=== PATIENT | female | born 1985 | race Caucasian/White ===

== ENCOUNTER 2017-03-28 13:26 | Emergency (ER) | payer MEDICARE, MEDICAID ==
[~2017-03-28] VITALS: Ht 162.6 cm; Wt 58.5 kg
[~2017-03-28 13:26] MED LIST: MULT-57; RISP0.252; VENL37.572
--- OUTSIDE RECORDS SUMMARY | 2017-03-28 13:30 | XMS REPORT | Continuity of Care Document ---
Demographics Preferred Language Unknown Marital Status Unknown Advent Affiliation Unknown Race Unknown Ethnic Group Unknown Author Author [facility] Organization [facility] Address Unknown Phone Unavailable Allergies Medications Problems Procedures Results Encounters ACCT No. Visit Date/Time Discharge Status Pt. Type Provider Facility Loc./Unit Complaint [id number] 09/20/2016 14:04:00 ACT Unknown [id number] 05/19/2016 09:47:00 ACT Unknown [id number] 04/21/2016 08:35:00 ACT Unknown [id number] 02/12/2015 10:23:00 ACT Unknown [id number] 05/23/2014 08:54:00 ACT Unknown [id number] 05/23/2014 08:54:00 ACT Unknown [id number] 03/26/2014 10:08:00 ACT Unknown
--- OUTSIDE RECORDS SUMMARY | 2017-03-28 13:30 | XMS REPORT | CCD ---
Author Author DIONE CORTES Organization Unknown Address [address] [place] [phone] Phone 0 Care Team Providers Care Physician Relations Representative Name Role Phone BRIAN MERCER Attending Physician 0 Vital Signs Unknown or Not Available. Allergies Allergy Code Allergy Type Reaction Status No Known Drug Allergies 0 No known drug allergies Active Procedures Procedure Code Procedure Type Date CHEST [id number] 04/27/2016 History of Immunizations Unknown or Not Available. Problems Unknown or Not Available. Results Unknown or Not Available. Active Medications Unknown or Not Available. Medications Administered During Visit Unknown or Not Available. 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 Discharge Instructions You were admitted to [facility] on 04/27/2016 10:05 with a principal diagnosis of Nonspecific reaction to skin test w/o active tuberculos You were discharged from [facility] on 04/27/2016 10:05 Should you have any questions prior to discharge, please contact a member of your healthcare team. If you have left the hospital and have any questions, please contact your primary care physician. Chief Complaint and Reason For Visit Chief Complaint Date of Onset XR CHEST 2 VIEWS Function Status Unknown or Not Available. Plan of Care Unknown or Not Available. Referral/Transition of Care Unknown or Not Available.
--- OUTSIDE RECORDS SUMMARY | 2017-03-28 13:30 | XMS REPORT | CCD ---
Author Author SANYA OLIVIA Organization Unknown Address [address] [place] [address] [phone] Phone 0 Care Team Providers Care Ramp Boss Name Role Phone BRIAN MERCER Attending Physician 0 Adriana CASTRO Physician [phone] Vital Signs Unknown or Not Available. Allergies Allergy Code Allergy Type Reaction Status No Known Drug Allergies 0 No known drug allergies Active Procedures Unknown or Not Available. History of Immunizations Unknown or Not Available. Problems Unknown or Not Available. Results COMP METABOLIC - Collect Date/Time: 03/25/2015 08:20 Test Name Code Test Result Test Units Test Ref Range GLUCOSE 73 mg/dL L=70 H=110 BUN 7 mg/dL L=7 H=18 CREATININE 1.00 mg/ dL L=0.60 H=1.30 AGE 29 YEARS GFR 69.2 SODIUM 140 mmol/L L=136 H=145 POTASSIUM 3.9 mmol/ L L=3.5 H=5.1 CHLORIDE 104 mmol/L L=98 H=107 CO2 26 mmol/L L=21 H=32 CALCIUM 9.3 mg/dL L=8.5 H=10.1 AST 13 U/L L=15 H=37 ALT 29 U/L L=12 H=78 ALKALINE PHOS 82 U/ L L=50 H=136 TOTAL PROTEIN 7.6 g/ dL L=6.4 H=8.2 ALBUMIN 3.4 g/dL L=3.4 H=5.0 TOTAL BILI 0.30 mg/ dL L=0.00 H=1.00 LIPID PANEL - Collect Date/Time: 03/25/2015 08:20 Test Name Code Test Result Test Units Test Ref Range CHOLESTEROL 168 mg/ dL L=0 H=200 TRIGLYCERIDES 169 mg /dL L=30 H=150 HDL 45 mg/dL L=50 H=60 LDL, CALC 89 mg/dL L=0 H=100 VLDL 34 mg/dL L=0 H=40 CHOL/HDL RISK 3.7 RATIO L=0.0 H=4.4 PT FASTING: ? N/A Active Medications Unknown or Not Available. Medications Administered During Visit Unknown or Not Available. Encounters Unknown or Not Available. Social History Smoking Status Code Start Date End Date Current every day smoker [id number] Patient Decision Aids Unknown or Not Available. Discharge Instructions You were admitted to [facility] on 03/25/2015. You were discharged from [facility] on 03/25/2015. Should you have any questions prior to discharge, please contact a member of your healthcare team. If you have left the hospital and have any questions, please contact your primary care physician. Chief Complaint and Reason For Visit Unknown or Not Available. Function Status Unknown or Not Available. Plan of Care Unknown or Not Available. Referral/Transition of Care Unknown or Not Available.
--- OUTSIDE RECORDS SUMMARY | 2017-03-28 13:30 | XMS REPORT | CCD ---
Author Author SANYA OLIVIA Organization Unknown Address [address] [place] [address] [phone] Phone 0 Care Team Providers Care Netsuite Developer Name Role Phone BRIAN MERCER Attending Physician 0 Vital Signs Unknown or Not Available. Allergies Allergy Code Allergy Type Reaction Status No Known Drug Allergies 0 No known drug allergies Active Procedures Unknown or Not Available. History of Immunizations Unknown or Not Available. Problems Unknown or Not Available. Results TSH - Collect Date/Time: 01/28/2015 08:45 Test Name Code Test Result Test Units Test Ref Range TSH 1.35 uIU/mL L=0.36 H=3.74 Active Medications Unknown or Not Available. Medications Administered During Visit Unknown or Not Available. Encounters Encounter Diagnosis Diagnosis Code Start Date LOSS OF WEIGHT 61152 01/28/2015 Social History Smoking Status Code Start Date End Date Current every day smoker [id number] Patient Decision Aids Unknown or Not Available. Discharge Instructions You were admitted to [facility] on 01/28/2015 with a principal diagnosis of LOSS OF WEIGHT. You were discharged from [facility] on 01/28/2015. Should you have any questions prior to discharge, please contact a member of your healthcare team. If you have left the hospital and have any questions, please contact your primary care physician. Chief Complaint and Reason For Visit Chief Complaint Date of Onset LAB Function Status Unknown or Not Available. Plan of Care Unknown or Not Available. Referral/Transition of Care Unknown or Not Available.
--- OUTSIDE RECORDS SUMMARY | 2017-03-28 13:30 | XMS REPORT | CCD ---
Author Author SANYA OLIVIA Organization Unknown Address [address] [place] [address] [phone] Phone 0 Care Team Providers Care Lining Machine Tender Name Role Phone BRIAN MERCER Attending Physician 0 Adriana CASTRO Physician [phone] Vital Signs Unknown or Not Available. Allergies Allergy Code Allergy Type Reaction Status No Known Drug Allergies 0 No known drug allergies Active Procedures Unknown or Not Available. History of Immunizations Unknown or Not Available. Problems Unknown or Not Available. Results HGB A1C - Collect Date/Time: 05/20/2015 08:55 Test Name Code Test Result Test Units Test Ref Range HGB A1C 4.9 % L=4.5 H=6.2 eAG 94 mg/dL Active Medications Unknown or Not Available. Medications Administered During Visit Unknown or Not Available. Encounters Encounter Diagnosis Diagnosis Code Start Date LT USE OF OTH MEDICATIONS V5869 2014 Social History Smoking Status Code Start Date End Date Current every day smoker [id number] Patient Decision Aids Unknown or Not Available. Discharge Instructions You were admitted to [facility] on 05/20/2015 with a principal diagnosis of LT USE OF OTH MEDICATIONS. You were discharged from [facility] on 05/20/2015. Should you have any questions prior to [...]
--- OUTSIDE RECORDS SUMMARY | 2017-03-28 13:31 | XMS REPORT | Continuity of Care Document ---
Author Author [facility] Organization [facility] Address Unknown Phone Unavailable Support Name Relationship Address Phone PILO COONEY Caregiver [facility] [address] [place] [address] LIBRADO MCBRIDE MD Caregiver [address] [place] [address] [place] [phone] HIEU HUNTER Next Of Kin [address] [place] [address] Insurance Providers Payer Name Policy Number Subscriber Name Relationship Medicare [id number] Juan Luis Singh 17 Self Medicaid [id number] Juan Luis Singh 17 Self Advance Directives Directive Response Recorded Date/Time Advanced Directives Type None 08/08/14 6:40pm Problems Medical Problems Problem Onset Date Status Paranoid Unknown Active Medications Medication Dose Route Sig Days/Qty Instructions Order Date Discontinued Date Status [Abilify] DAILY 05/05/09 01/13/10 Discontinued [Lexapro] DAILY 05/05/09 01/13/10 Discontinued Risperidone DAILY 08/08/14 Active Venlafaxine HCl DAILY 08/08/14 Active Multivitamin DAILY 08/08/14 Active Social History Social History Problem Response Recorded Date/Time Smoking Status Current every day smoker 08/08/2014 7:06pm When did patient START smoking? 15 CIGS A DAY 08/08/2014 7:06pm Hx Alcohol Use No 08/08/2014 7:06pm Hospital Discharge Instructions No hospital discharge instructions. Plan of Care No plan of care. Functional Status Query Response Date Recorded Physical Hygiene Self August 08, 2014 7:06pm Disabilities None August 08, 2014 7:06pm Devices Used None August 08, 2014 7:06pm Dressing Self August 08, 2014 7:06pm Ambulation Self August 08, 2014 7:06pm Diet Self August 08, 2014 7:06pm Mental Status Alert August 08, 2014 8:44pm Disabilities None August 08, 2014 7:06pm Devices Used None August 08, 2014 7:06pm Physical Hygiene Self August 08, 2014 7:06pm Dressing Self August 08, 2014 7:06pm Ambulation Self August 08, 2014 7:06pm Diet Self August 08, 2014 7:06pm Allergies, Adverse Reactions, Alerts Allergen Type Severity Reaction Status Last Updated No Known Allergies Allergy Unknown Active 05/05/09 Immunizations No immunization records. Vital Signs Acute Vital Signs Vital Response Date/Time Temperature (Fahrenheit) 98.0 deg F (96.8 - 99.1) Temperature (Calculated Celsius) 36.29962 degrees C (36.0 - 37.3) Pulse Rate (adult) 85 bpm (60 - 100) Respiratory Rate 20 breaths/min (10 - 20) O2 Sat by Pulse Oximetry 95 % (90 - 100) Blood Pressure 123/61 mm Hg Height 5 ft 3 in Weight 154 lb Body Mass Index 27.0 kg/m^2 Results Test Source Date Result Interp. Ref. Range Comments Acetaminophen Level August 08, 2014 7:17pm < 10 UG/ML L 10-30 TOXIC <4 HR POST INGESTION: >150 MG/L;TOXIC <12 HR POST INGESTION: >50 MG/L Alanine Aminotransferase (ALT/SGPT) August 08, 2014 7:17pm 35 U/L N 9 -52 Albumin August 08, 2014 7:17pm 4.5 G/DL N 3.5-5.0 Albumin/Globulin Ratio August 08, 2014 7:17pm 1.7 RATIO N 1.1-2.2 Alcohol, Quantitative August 08, 2014 7:17pm <10 MG/DL - Alkaline Phosphatase August 08, 2014 7:17pm 65 U/L N 38-126 Anion Gap August 08, 2014 7:17pm 14 MEQ/L N 5-15 Aspartate Amino Transf (AST/SGOT) August 08, 2014 7:17pm 23 U/L N 14- 36 BUN/Creatinine Ratio August 08, 2014 7:17pm 9 RATIO N 6-26 Basophils # (Auto) August 08, 2014 7:17pm 0.0 T/MM3 N 0-0.2 Basophils (%) (Auto) August 08, 2014 7:17pm 0.4 % N 0-2 Blood Urea Nitrogen August 08, 2014 7:17pm 7.0 MG/DL N 7-17 Calcium Level August 08, 2014 7:17pm 9.7 MG/DL N 8.4-10.2 Calculated Osmolality August 08, 2014 7:17pm 273 MOSM/KG N 261-280 Carbon Dioxide Level August 08, 2014 7:17pm 24 MEQ/L N 22-30 Chloride Level August 08, 2014 7:17pm 105 MEQ/L N 98-107 Creatinine August 08, 2014 7:17pm 0.8 MG/DL N 0.7-1.2 Eosinophils # (Auto) August 08, 2014 7:17pm 0.1 T/MM3 N 0-0.5 Eosinophils (%) (Auto) August 08, 2014 7:17pm 0.7 % N 0-4 Globulin August 08, 2014 7:17pm 2.7 G/DL N 2.4-3.6 Glucose Level August 08, 2014 7:17pm 106 MG/DL N 65-110 Hematocrit August 08, 2014 7:17pm 44.9 % N 36-46 Hemoglobin August 08, 2014 7:17pm 15.7 GM/DL N 12-16 Human Chorionic Gonadotropin, Qual January 05, 2010 1:55pm Negative - Lymphocytes # (Auto) August 08, 2014 7:17pm 1.9 T/MM3 N 1-4.8 Lymphocytes (%) (Auto) August 08, 2014 7:17pm 27.1 % N 23-45 Mean Corpuscular Hemoglobin August 08, 2014 7:17pm 32.2 UUG N 26-34 Mean Corpuscular Hemoglobin Concent August 08, 2014 7:17pm 35.0 GM/DL N 31-37 Mean Corpuscular Volume August 08, 2014 7:17pm 92.0 UM3 N 80-100 Mean Platelet Volume August 08, 2014 7:17pm 11.1 UM3 N 9.4-12.4 Monocytes # (Auto) August 08, 2014 7:17pm 0.5 T/MM3 N 0-0.8 Monocytes (%) (Auto) August 08, 2014 7:17pm 6.6 % N 0-9.0 Neutrophils # (Auto) August 08, 2014 7:17pm 4.7 T/MM3 N 1.8-7.7 Neutrophils (%) (Auto) August 08, 2014 7:17pm 65.2 % N 33-66 Platelet Count August 08, 2014 7:17pm 156 T/MM3 N 130-400 Potassium Level August 08, 2014 7:17pm 3.6 MEQ/L N 3.6-5 RDW Standard Deviation August 08, 2014 7:17pm 43.1 FL N 36.9-50.2 Red Blood Count August 08, 2014 7:17pm 4.88 M/MM3 N 4.00-5.20 Salicylates Level August 08, 2014 7:17pm < 1.0 MG/DL L 2-20 Sodium Level August 08, 2014 7:17pm 143 MEQ/L N 134-144 Total Bilirubin August 08, 2014 7:17pm 0.30 MG/DL N 0.20-1.30 Total Protein August 08, 2014 7:17pm 7.2 G/DL N 6.3-8.2 Urine Bacteria January 13, 2010 9:51pm 2+ - Has specimen been collected /obtained? Y Urine Bilirubin August 08, 2014 7:00pm Negative - Has specimen been collected/obtained? Y Urine Blood August 08, 2014 7:00pm Trace-intact H - Has specimen been collected/obtained? Y Urine Collection Type August 08, 2014 7:00pm Voided-not cc-midstr - Has specimen been collected/obtained? Y Urine Color August 08, 2014 7:00pm Yellow - Has specimen been collected/obtained? Y Urine Culture Indicated January 13, 2010 9:51pm Cult set up - Has specimen been collected/obtained? Y Urine Drug Screen Confirmation May 05, 2009 10:06pm Sent out - Urine Glucose (UA) August 08, 2014 7:00pm Negative - Has specimen been collected/obtained? Y Urine Ketones August 08, 2014 7:00pm Negative - Has specimen been collected/obtained? Y Urine Leukocyte Esterase August 08, 2014 7:00pm Negative - Has specimen been collected/obtained? Y Urine Nitrite August 08, 2014 7:00pm Negative - Has specimen been collected/obtained? Y Urine Protein August 08, 2014 7:00pm Negative - Has specimen been collected/obtained? Y Urine RBC January 13, 2010 9:51pm None seen /HPF - Has specimen been collected/obtained? Y Urine Specific Ross August 08, 2014 7:00pm <=1.005 L - Has specimen been collected/obtained? Y Urine Turbidity August 08, 2014 7:00pm Clear - Has specimen been collected/obtained? Y Urine Urobilinogen August 08, 2014 7:00pm 0.2 EU/DL - Has specimen been collected/obtained? Y Urine WBC January 13, 2010 9:51pm 10-20 /HPF - Has specimen been collected/obtained? Y Urine pH August 08, 2014 7:00pm 5.5 - Has specimen been collected/ obtained? Y White Blood Count August 08, 2014 7:17pm 7.2 T/MM3 N 4.5-11.0 Chemistry Specimen Hemolysis August 08, 2014 7:17pm < 15 0-25 0-25 : No Hemolysis.26-70: Slight Hemolysis - can falsely elevate K and Urine Protein. 71-285: Moderate Hemolysis - can falsely elevate K, Troponin I, CA 19-9, PTH, CSF GLucose, and Urine Protein, and can falsely decrease Phenytoin. 286-999: Gross Hemolysis - can falsely elevate K, Troponin I, CA 19-9, PTH, CSF Glucose, and Urine Protine, and can falsely decrease Phenytoin. Recommend specimen recollection. Urinalysis Comment August 08, 2014 7:00pm Microscopic not ind. - Has specimen been collected/obtained? Y Lab Scanned Report September 21, 2011 12:58pm REFERENCE LAB [id number] - EKG May 05, 2009 8:58pm Complete - Turbidity August 08, 2014 7:17pm < 20 0-20 Glomerular Filtration Rate Calc August 08, 2014 7:17pm 84 - Immature Granulocyte # (Auto) August 08, 2014 7:17pm 0.00 T/MM3 N 0.00-0.03 Immature Granulocyte % (Auto) August 08, 2014 7:17pm 0.0 % N 0.0-0.5 Icterus Index August 08, 2014 7:17pm < 2 0-7 Urine Culture Urine, Clean Catch Voided January 13, 2010 10:07pm Mixed Gram Positive Organisms Procedures No known history of procedures. Encounters Encounter Location Date/Time Departed Emergency Room [facility] 08/08/14 6:39pm Recent Diagnosis
--- OUTSIDE RECORDS SUMMARY | 2017-03-28 13:31 | XMS REPORT | CCD ---
Author Author DIONE CORTES Organization Unknown Address [address] [place] [address] [phone] Phone 0 Care Team Providers Care Provider Contracting Consultant Name Role Phone BRIAN MERCER Attending Physician 0 KAVIN BERNAL Rounding Physician 0 Vital Signs Unknown or Not Available. Allergies Allergy Code Allergy Type Reaction Status No Known Drug Allergies 0 No known drug allergies Active Procedures Unknown or Not Available. History of Immunizations Unknown or Not Available. Problems Unknown or Not Available. Results HGB A1C - Collect Date/Time: 06/01/2016 08:00 Test Name Code Test Result Test Units Test Ref Range HGB A1C 4.8 % L=4.5 H=6.2 eAG 91 mg/dL Active Medications Unknown or Not Available. Medications Administered During Visit Unknown or Not Available. Encounters Encounter Diagnosis Diagnosis Code Start Date Other long term care pharmacist (current) drug therapy [id number] 06/01/2016 Social History Smoking Status Code Start Date End Date Current every day smoker [id number] Patient Decision Aids Unknown or Not Available. Discharge Instructions You were admitted to [facility] on 06/01/2016 11:21 with a principal diagnosis of Other long term care pharmacist (current) drug therapy You had the following tests done: HGB A1C You were discharged from [facility] on 06/01/2016 11:21 Should you have any questions prior to [...]
--- OUTSIDE RECORDS SUMMARY | 2017-03-28 13:31 | XMS REPORT | CCD ---
Author Author DIONE CORTES Organization Unknown Address [address] [place] [address] [phone] Phone 0 Care Team Providers Care Inventory Clerk Name Role Phone BRIAN MERCER Attending Physician 0 KAVIN BERNAL Rounding Physician 0 Vital Signs Unknown or Not Available. Allergies Allergy Code Allergy Type Reaction Status No Known Drug Allergies 0 No known drug allergies Active Procedures Unknown or Not Available. History of Immunizations Unknown or Not Available. Problems Unknown or Not Available. Results COMP METABOLIC - Collect Date/Time: 04/07/2016 08:10 Test Name Code Test Result Test Units Test Ref Range GLUCOSE 72 mg/dL L=70 H=110 BUN 8 mg/dL L=7 H=18 CREATININE 0.81 mg/ dL L=0.60 H=1.30 AGE 30 YEARS GFR 82.5 SODIUM 141 mmol/L L=136 H=145 POTASSIUM 3.8 mmol/ L L=3.5 H=5.1 CHLORIDE 107 mmol/L L=98 H=107 CO2 26 mmol/L L=21 H=32 CALCIUM 9.5 mg/dL L=8.5 H=10.1 AST 12 U/L L=15 H=37 ALT 23 U/L L=12 H=78 ALKALINE PHOS 57 U/ L L=50 H=136 TOTAL PROTEIN 7.2 g/ dL L=6.4 H=8.2 ALBUMIN 3.3 g/dL L=3.4 H=5.0 TOTAL BILI 0.30 mg/ dL L=0.00 H=1.00 Active Medications Unknown or Not Available. Medications Administered During Visit Unknown or Not Available. Encounters Encounter Diagnosis Diagnosis Code Start Date Other intermediate designer (current) drug therapy [id number] 04/07/2016 Social History Smoking Status Code Start Date End Date Current every day smoker [id number] Patient Decision Aids Unknown or Not Available. Discharge Instructions You were admitted to [facility] on 04/07/2016 10:32 with a principal diagnosis of Other senior living (current) drug therapy You had the following tests done: COMP METABOLIC You were discharged from [facility] on 04/07/2016 10:32 Should you have any questions prior to [...]
[2017-03-28 13:33] VITALS: Ht 162.6 cm; Wt 58.5 kg
--- NOTE | 2017-03-28 14:03 | ERPDOC ---
Departure Disposition Decision Date: March 28, 2017 Disposition Decision Time: 17:48 Disposition: 65 TO [facility] HOSP Impression Impression Impression: Primary Impression: Paranoid Severity: Moderate Condition: Stable Seen By: Physician only Referrals: PILO COONEY (Family) Patient Instructions: Medical Clearance for Psychiatric Care (ED) Problems/Meds/Labs Reviewed?: Yes Medications reviewed and manag: Yes Follow up care ordered?: Yes Mental Status: Alert, Oriented HPI - Psychosocial General Chief Complaint: Psychiatric Problems Stated Complaint: MENTAL EVAL Time Seen by MD: 14:03 Source: patient Exam Limitations: no limitations HPI - Psychosocial Initial Comments Patient is a 31-year-old female, presents emergency room for evaluation of her nausea increasing delusions. Patient recently discharged from [facility] after being there for 5 months, patient stop taking her medications 2 days ago by report of corrections caseworker. Patient called [facility] this morning and told him that her mother had killed her son, she is called 911 several times this morning. credit union manager brought patient to the ER and stated that she needs to go back to the hospital. Patient delusional and paranoid, however states she does not want to go back to [facility]. Onset: Gradual, Getting worse Duration: other (2 days) Allergies: Coded Allergies: No Known Allergies (Unverified Allergy, Unknown, 05/05/09) Past History Past Medical History Pt denies signifigant PMH Psychological: other (schizoaffective disorder) Surgical History Denies Surgeries Social History Smoking Status: Current every day smoker Substance Use Type: does not use Alcohol Intake: none Review of Systems Constitutional Constitutional: DENIES: appetite decrease, chills, dizziness, fever, weakness Eyes Vision: DENIES: double vision, loss of visual sky ENMT Sinuses: DENIES: congestion, rhinorrhea Mouth/Throat: DENIES: scratchy throat, sore throat Cardiovascular Cardiac: DENIES: chest pain, dyspnea on exertion Pulmonary Respiratory: DENIES: cough, dyspnea, sputum, tachypnea GI Upper Abdomen: DENIES: nausea, pain, vomiting Lower Abdomen: DENIES: constipation, diarrhea, pain General: DENIES: frequency, urgency Musculoskeletal General: DENIES: cramps, pain, weakness Integumentary Skin: DENIES: color change, itching, rash Neurological General: DENIES: headache, numbness, weakness Psychiatric Psychiatric: delusions, emotional instability, irritability, paranoia Endocrine Endocrine: DENIES: heat/cold intolerance Hematologic/Lymphatic Hematologic/Lymphatic: DENIES: anemia Physical Exam General General Nourishment: well nourished, well developed General Body Habitus: well groomed Vitals and Pain First Documented Vital Signs Date Time Temp Pulse Resp B/P Pulse Ox O2 Delivery O2 Flow Rate FiO2 03/28/17 13:33 98.8 124 16 123/58 96 Room Air Weight: Kilograms: 58.500 Height (feet): 5 Height (inches): 4.00 Triage Pain Scale: RN VS reviewed by Provider: Yes Eyes (brief) Eyes Brief: found: EOMI, PERRL ENMT (brief) ENMT Brief: FOUND: TM clear, TM good light reflex, ear canals clear, mucosa moist, normal dentition, NOT FOUND: nasal erythema, nasal exudate, nasal swelling, pharnyx erythema, tonsillar deviation Neck (brief) Neck: NOT FOUND: adenopathy, spasm, tenderness Respiratory (brief) Respiratory: FOUND: clear all sky, equal bilaterally, NOT FOUND: rales, wheezes Cardiovascular (brief) Cardiac: FOUND: regular rate, regular rhythm Capillary Refill: <2 sec Abdomen (brief) Abdominal Brief: FOUND: bowel normo active x4, soft, NOT FOUND: distended, tender Lymphatic (brief) Lymphatic Brief: NOT FOUND: adenopathy Musculoskeletal (brief) Musculoskeletal Brief: NOT FOUND: spasm, tenderness Integumentary (brief) Integumentary Brief: FOUND: dry, pink, warm, NOT FOUND: rash Neurologic (brief) Neurological Brief: FOUND: CN w/o gross def to obs, motor-no gross deficits, sensory-no gross deficits Psychiatric (brief) Psychiatric Brief: FOUND: alert, oriented Differential Diagnoses Considering: Anxiety, Bipolar, Borderline PD, Delirium, Dementia, Depression, Hallucinations, Alcohol Intoxication, Other Intoxication, Gem, Acute Psychosis Progress Results/Orders Orders Procedure Category Date Status Time Cmp - Comprehensive LAB 03/28/17 Complete Metabolic 14:03 Cbc W/Auto LAB 03/28/17 Complete Diff-Reflex Manual 14:03 Ethanol LAB 03/28/17 Complete 14:03 Magnesium LAB 03/28/17 Complete 14:03 Drug Screen LAB 03/28/17 Complete Urine-Test At [facility] 14:03 Acetaminophen LAB 03/28/17 Complete 14:03 Salicylate LAB 03/28/17 Complete 14:03 Ua, Dip Wreflex LAB 03/28/17 Complete Microsc & Electrical Supervisor 14:03 LAB 03/28/17 Complete Qualitative, Urine 14:03 Nothing By Mouth (Ed EDM 03/28/17 Transmitted Only) 14:03 Lab Results Laboratory Tests Test 03/28/17 14:11 03/28/17 14:15 03/28/17 15:09 White Blood Count 7.0T/MM3 Red Blood Count 4.00M/MM3 Hemoglobin 12.6GM/DL Hematocrit 37.4% Mean Corpuscular Volume 93.5UM3 Mean Corpuscular Hemoglobin 31.5UUG Mean Corpuscular Hemoglobin Concent 33.7GM/DL RDW Standard Deviation 42.0FL Platelet Count 177T/MM3 Mean Platelet Volume 10.2UM3 Immature Granulocyte % (Auto) 0.3% Neutrophils (%) (Auto) 77.9% Lymphocytes (%) (Auto) 16.8% Monocytes (%) (Auto) 4.9% Eosinophils (%) (Auto) 0.0% Basophils (%) (Auto) 0.1% Absolute Immature Granulocyte (auto 0.02T/MM3 Absolute Neutrophils (auto) 5.5T/MM3 Absolute Lymphocytes (auto) 1.2T/MM3 Absolute Monocytes (auto) 0.3T/MM3 Absolute Eosinophils (auto) 0.0T/MM3 Absolute Basophils (auto) 0.0T/MM3 Turbidity < 20 Sodium Level 145MEQ/L Potassium Level 3.9MEQ/L Chloride Level 105MEQ/L Carbon Dioxide Level 25MEQ/L Anion Gap 15MEQ/L Blood Urea Nitrogen 13.0MG/DL Creatinine 0.8MG/DL Glomerular Filtration Rate Calc 83 BUN/Creatinine Ratio 16RATIO Glucose Level 134MG/DL Calculated Osmolality 281MOSM/KG Calcium Level 9.7MG/DL Magnesium Level 2.0MG/DL Total Bilirubin 0.20MG/DL Icterus Index < 2 Aspartate Amino Transf (AST/SGOT) 18U/L Alanine Aminotransferase (ALT/SGPT) 27U/L Alkaline Phosphatase 53U/L Total Protein 7.3G/DL Albumin 4.8G/DL Globulin 2.5G/DL Albumin/Globulin Ratio 1.9RATIO Chemistry Specimen Hemolysis < 15 Salicylates Level < 1.0MG/DL Acetaminophen Level < 10UG/ML Alcohol, Quantitative <10MG/DL Urine Collection Type Voided-not cc-midstr Urine Color Yellow Urine Turbidity Clear Urine pH 5.5 Urine Specific Ira 1.025 Urine Protein Negative Urine Glucose (UA) Negative Urine Ketones Negative Urine Blood Negative Urine Nitrite Negative Urine Bilirubin Negative Urine Urobilinogen 0.2EU/DL Urine Leukocyte Esterase Negative Urinalysis Comment Microscopic not ind. Urine Test Negative Urine Opiates Screen NegativeNG/ML Urine Oxycodone Screen NegativeNG/ML Urine Methadone Screen NegativeNG/ML Urine Propoxyphene Screen NegativeNG/ML Urine Barbiturates Screen NegativeNG/ML Urine Tricyclic Antidepressants NegativeNG/ML Urine Phencyclidine Screen NegativeNG/ML Urine Amphetamines Screen NegativeNG/ML Urine Methamphetamines Screen NegativeNG/ML Urine Benzodiazepines Screen NegativeNG/ML Urine Cocaine Screen NegativeNG/ML Urine Cannabinoids Screen NegativeNG/ML Lab Scanned Report REFERENCE [id number] Progress Progress Patient's laboratories are noncontributory, we'll have [facility] screening done. Patient has been screening and found to meet admission criteria, I discussed with Dr. Morales he will accept patient NICK CARLIN MD March 28, 2017 14:03
[2017-03-28 14:24] LABS: BLOOD, URINE NEGATIVE (NEGATIVE); COLOR,URINE YELLOW (YELLOW); LEUKOCYTE ESTERASE ,URINE NEGATIVE (NEGATIVE); NITRITE,URINE NEGATIVE (NEGATIVE); UROBILINOGEN,URINE 0.2 EU/DL (NORMAL)
[2017-03-28 14:24] LABS: BASOPHILS % (AUTO) 0.1 % (0-2); HCT - HEMATOCRIT 37.4 % (36-46); HGB - HEMOGLOBIN 12.6 GM/DL (12-16); IMMATURE GRANULOCYTE # (AUTO) 0.02 T/MM3 (0.00-0.03); IMMATURE GRANULOCYTE % (AUTO) 0.3 % (0.0-0.5); LYMPHOCYTES # (AUTO) 1.2 T/MM3 (1-4.8); LYMPHOCYTES % (AUTO) 16.8 % (23-45); MEAN CORPUSCULAR HGB 31.5 UUG (26-34); MEAN CORPUSCULAR HGB CONC(MCHC 33.7 GM/DL (31-37); MEAN CORPUSCULAR VOLUME 93.5 UM3 (80-100); MEAN PLATELET VOLUME 10.2 UM3 (9.4-12.4); MONOCYTES # (AUTO) 0.3 T/MM3 (0-0.8); MONOCYTES % (AUTO) 4.9 % (0-9.0); NEUTROPHILS #(AUTO)-ABSOLUTE 5.5 T/MM3 (1.8-7.7); NEUTROPHILS % (AUTO) 77.9 % (33-66)
--- OUTSIDE RECORDS SUMMARY | 2017-03-28 14:29 | XMS REPORT | Continuity of Care Document ---
Demographics Preferred Language Unknown Marital Status Unknown Caodaism Affiliation Unknown Race Unknown Ethnic Group Unknown Author Author [facility] Organization [facility] Address Unknown Phone Unavailable Allergies Medications Problems Procedures Results Encounters ACCT No. Visit Date/Time Discharge Status Pt. Type Provider Facility Loc./Unit Complaint [id number] 09/20/2016 14:04:00 ACT Unknown [id number] 05/19/2016 09:47:00 ACT Unknown [id number] 04/21/2016 08:35:00 ACT Unknown [id number] 02/12/2015 10:23:00 ACT Unknown [id number] 05/23/2014 08:54:00 ACT Unknown [id number] 05/23/2014 08:54:00 ACT Unknown [id number] 03/26/2014 10:08:00 ACT Unknown
--- OUTSIDE RECORDS SUMMARY | 2017-03-28 14:30 | XMS REPORT | Continuity of Care Document ---
Author Author [facility] Organization [facility] Address Unknown Phone Unavailable Support Name Relationship Address Phone PILO COONEY Caregiver [facility] [address] [place] [address] LIBRADO MCBRIDE MD Caregiver [address] [place] [address] [place] [phone] HIEU HUNTER Next Of Kin [address] [place] [address] Insurance Providers Payer Name Policy Number Subscriber Name Relationship Medicare [id number] Juan Luis Singh 17 Self Medicaid [id number] Juan Luis Singh 17 Self Advance Directives [...] F (96.8 - 99.1) Temperature (Calculated Celsius) 36.77379 degrees C (36.0 - 37.3) Pulse Rate [...] Has specimen been collected/obtained? Y Urine Specific [place] August 08, 2014 7:00pm <=1.005 L - [...] Report September 21, 2011 12:58pm REFERENCE LAB [id number] - EKG May 05, 2009 8:58pm Complete [...] Encounters Encounter Location Date/Time Departed Emergency Room [facility] 08/08/14 6:39pm Recent Diagnosis
[2017-03-28 14:35] LABS: ACETAMINOPHEN < 10 UG/ML (10-30); ALBUMIN 4.8 G/DL (3.5-5.0); ALBUMIN/GLOBULIN RATIO 1.9 RATIO (1.1-2.2); ALKALINE PHOSPHATASE 53 U/L (38-126); ALT (SGPT) 27 U/L (9-52); ANION GAP 15 MEQ/L (5-15); AST (SGOT) 18 U/L (14-36); BUN/CREATININE RATIO 16 RATIO (6-26); CALCIUM 9.7 MG/DL (8.4-10.2); CHLORIDE 105 MEQ/L (98-107); CO2 - CARBON DIOXIDE 25 MEQ/L (22-30); CREATININE 0.8 MG/DL (0.7-1.2); ETHANOL <10 MG/DL (<10); GLOMERULAR FILTRATION RATE 83; GLUCOSE 134 MG/DL (65-110); POTASSIUM 3.9 MEQ/L (3.6-5); SALICYLATE < 1.0 MG/DL (2-20); SODIUM 145 MEQ/L (134-144); TOTAL PROTEIN 7.3 G/DL (6.3-8.2)
[2017-03-28] MEDS ORDERED: SENN-156 PO (14:40)
[2017-03-28 14:58] LABS: AMPHETAMINE SCREEN,URINE NEGATIVE; BARBITURATE SCREEN,URINE NEGATIVE; BENZODIAZEPINES SCREEN,URINE NEGATIVE; CANNABINOID SCREEN,URINE NEGATIVE; COCAINE SCREEN,URINE NEGATIVE; METHADONE SCREEN, URINE NEGATIVE; METHAMPHETAMINE SCREEN, URINE NEGATIVE; OPIATE SCREEN,URINE NEGATIVE; PHENCYCLIDINE SCREEN,URINE NEGATIVE; TRICYCLIC ANTIDEPRESSANT,URINE NEGATIVE
--- NOTE | 2017-03-28 18:50 | NUR ---
REPORT [facility] HERE, REPORT IS GIVEN
[2017-03-28 19:00] VITALS: BP 106/56; PULSE 87; RESP 18; TEMP 98.1; O2SAT 98
--- NOTE | 2017-03-28 19:00 | NUR ---
DEPART PT LEAVES AMBULATORY WITH [facility] [place]
== END 2017-03-28 19:00 ==
LOC: ED 13:26
DX: F22 Delusional disorders (principal); Z79.899 Other long term (current) drug therapy
CPT/HCPCS: 36415; 80053; 80306; 80307; 81003; 81025; 83735; 85025